=== PATIENT | female | born 1995 | race Caucasian/White ===

== ENCOUNTER 2025-01-27 17:36 | Emergency (ER) | payer MEDICAID ==
[~2025-01-27] VITALS: Ht 157.5 cm; Wt 127.0 kg
[2025-01-27 17:38] VITALS: BP 110/91; PULSE 70; RESP 18; TEMP 36.7; O2SAT 98
[2025-01-27 18:49] LABS: COLOR URINE YELLOW (YELLOW); GLUCOSE URINE NEGATIVE (NEGATIVE); KETONES URINE 1+ (NEGATIVE); LEUKOCYTE ESTERASE URINE NEGATIVE (NEGATIVE); NITRITE URINE NEGATIVE (NEGATIVE); OCCULT BLOOD URINE NEGATIVE (NEGATIVE); PH URINE 5.5 (4.5-8.0); PROTEIN URINE TRACE (NEGATIVE); SPECIFIC GRAVITY URINE 1.028 (1.005-1.030)
[2025-01-27] MEDS: ONDANSETRON HCL 4MG TABLET PO ONE (19:29)
[2025-01-27 19:31] LABS: CLARITY URINE HAZY (CLEAR)
[2025-01-27 19:33] LABS: BACTERIA URINE TRACE; RBC URINE NONE SEEN /hpf (0-2); SQUAMOUS EPITHELIAL CELL URINE 2+ /lpf (RARE/1+); WBC URINE 0-2 /hpf (0-2)
[2025-01-27 19:38] LABS: CHLORIDE 105 mEq/L (98-107); POTASSIUM 4.2 mEq/L (3.5-5.1); SODIUM 140 mEq/L (136-145)
[2025-01-27 19:39] LABS: CARBON DIOXIDE 28 mEq/L (21-32)
[2025-01-27 19:40] LABS: CALCIUM 8.8 mg/dL (8.7-10.4)
[2025-01-27 19:44] LABS: CREATININE 0.8 mg/dL (0.6-1.0); GLUCOSE 135 mg/dL (70-105); HEMATOCRIT. 34.9 % (36.0-48.0); HEMOGLOBIN. 11.4 g/dL (12.0-16.0); MEAN CORPUSCULAR HEMOGLOBIN 27.9 pg (28.0-32.0); MEAN CORPUSCULAR HGB CONC 32.7 g/dL (31.0-37.0); MEAN CORPUSCULAR VOLUME 85.5 fL (81.0-99.0); MEAN PLATELET VOLUME 10.7 fl (7.4-10.4); PLATELET 218 x1000/uL (130-400); RED BLOOD CELL COUNT 4.07 mill/uL (4.2-5.4); RED CELL DISTRIBUTION WIDTH 14.4 % (11.6-14.6); WHITE BLOOD COUNT 12.3 x1000/uL (4.5-11.0)
[2025-01-27 19:45] LABS: UREA NITROGEN BLOOD 11 mg/dL (9-23)
[2025-01-27 19:48] LABS: DIFFERENTIAL COMMENT 1
[2025-01-27 19:53] LABS: HCG SCREEN NEGATIVE
[2025-01-27 20:01] LABS: PLATELET ESTIMATE NORMAL
[2025-01-27] MEDS ORDERED: TOPUD MT (21:03)
[2025-01-27] MEDS ORDERED: IBUP-1525 MT (21:03)
== END 2025-01-27 21:26 | disposition home or self-care (01) ==
LOC: ER 17:36
DX: R10.2 Pelvic and perineal pain (principal); Z88.0 Allergy status to penicillin
CPT/HCPCS: 99283; 80048; 81003; 81025; 84703; 85025; 36415; Q0162